=== PATIENT | female | born 2000 | race Caucasian/White ===

== ENCOUNTER 2020-01-03 17:28 | Emergency (ER) | payer OTHER ==
[2020-01-03] MEDS ORDERED: ONDANSETRON *ODT* 4 MG TABLET SL ONE (17:33)
--- NOTE | 2020-01-03 17:33 | PDOC ---
Rapid Medical Evaluation Time Seen by Provider: 01/03/20 17:30 Medical Evaluation: Allergies Allergy/AdvReac Type Severity Reaction Status Date / Time No Known Allergies Allergy Verified 01/03/20 17:30 01/03/20 17:30 Pt presents for evaluation of dizziness and vomiting. States she took two generic pamprin for cramping earlier today and then her symptoms started. Pt currently on her period Exam: NAD, gait not observed. RRR. Orders: zofran Pt to proceed to the ER for further evaluation Discharge Disposition - Diagnosis Nausea - Referrals - Patient Instructions - Post Discharge Activity
[2020-01-03 17:34] VITALS: BP 132/92; PULSE 81; TEMP 98.5; BMI 31.2
[2020-01-03] MEDS ORDERED: ONDANSETRON *ODT* 4 MG TABLET ONE (18:10)
--- NOTE | 2020-01-03 18:10 | PDOC ---
History of Present Illness - General Chief Complaint: Lightheaded Stated Complaint: DIZZY Time Seen by Provider: 01/03/20 17:30 History Source: Patient Exam Limitations: Clinical Condition - History of Present Illness Initial Comments: 01/03/20 18:04 Patient with no significant past medical history present with sudden onset of lightheadedness and dizziness with palpitations which patient reports started after taking Pamprin [id number] off brand medication for menstrual cramps. Patient reported she took 1 pill yesterday which did not have any effect on her menstrual cramping so she doubled up on the dose this morning and started feeling a little palpitations and again double up this afternoon and started feeling full-blown anxiety attack and palpitations. Report anxiety attack and palpitations started 4 hours ago which has started to improve now and is startin g to feel better. Denies history of anxiety. Patient reported vomiting 3 times since incident but now does not feel anymore nausea. Denies fever, chills, shortness of breath, headache, abdominal pain. Denies any other symptoms Is this a multiple visit Asthma Patient?: No Timing/Duration: 4-6 hours Past History - Medical History Allergies/Adverse Reactions: Allergies Allergy/AdvReac Type Severity Reaction Status Date / Time No Known Allergies Allergy Verified 01/03/20 17:30 COPD: No - Reproductive History Is Patient Now?: No - Immunization History Immunization Up to Date: No - Psycho-Social/Smoking History Smoking History: Never smoked - Substance Abuse Hx (Audit-C & DAST Scrn) How often the patient has a drink containing alcohol: Never Score: In Men: 4 or > Positive; In Women: 3 or > Positive: 0 Screen Result (Pos requires Nsg. Audit-10AR): Negative In the last yr the pt used illegal drug/Rx for NonMed reason: No Score: Yes response is considered Positive: 0 Screen Result (Positive result requires Nsg. DAST-10): Negative Review of Systems - Review of Systems Able to Perform ROS?: Yes Is the patient limited Hungarian proficient: No Constitutional: No: Chills, Fever, Malaise HEENTM: No: Symptoms Reported, See HPI, Eye Pain, Blurred Vision, Tearing, Recent change in vision, Double Vision, Cataracts, Ear Pain, Ocular Prothesis, Ear Discharge, Nose Pain, Nose Congestion, Tinnitus, Nose Bleeding, Hearing Loss, Throat Pain, Throat Swelling, Mouth Pain, Dental Problems, Difficulty Swallowing, Mouth Swelling, Other Respiratory: No: Symptoms reported, See HPI, Cough, Orthopnea, Shortness of Breath, SOB with Exertion, SOB at Rest, Stridor, Wheezing, Productive cough, H emoptysis, Other Cardiac (ROS): Yes: Symptoms Reported, See HPI, Irregular Heart Rate, Lightheadedness, Palpitations. No: Chest Pain, Edema, Syncope, Chest Tightness, Other ABD/GI: Yes: Symptoms Reported, See HPI, Nausea, Vomiting. No: Constipated, Diarrhea, Abdominal cramping Neurological: No: Symptoms reported, Ataxia All Other Systems: Reviewed and Negative *Physical Exam - Vital Signs Last Vital Signs Temp Pulse Resp BP Pulse Ox 98.5 F 81 20 132/92 100 01/03/20 17:30 01/03/20 17:30 01/03/20 17:30 01/03/20 17:30 01/03/20 17:30 - Physical Exam 01/03/20 18:10 GENERAL: Well developed, well nourished. Awake and alert. No acute distress. HEENT: Normocephalic, atraumatic. PERRLA, EOMI. No conjunctival pallor. Sclera are non- icteric. Moist mucous membranes. Oropharynx is clear. NECK: Supple. Full ROM. CARDIOVASCULAR: Regular rate and rhythm. No murmurs, rubs, or gallops. Distal pulses are 2+ and symmetric. PULMONARY: No evidence of respiratory distress. Lungs clear to auscultation bilaterally. No wheezing, rales or rhonchi. ABDOMINAL: Soft. Non-tender. Non-distended. No rebound or guarding. No organomegaly. Normoactive bowel sounds. MUSCULOSKELETAL Normal range of motion at all joints. SKIN: Warm and dry. Normal capillary refill. No rashes. No jaundice. NEUROLOGICAL: Alert, awake, appropriate. Cranial nerves 2-12 intact. No deficits to light touch in face, upper extremities and lower extremities. No motor deficits in the in face, upper extremities and lower extremities. Normal speech. Gait is normal without ataxia. PSYCHIATRIC: Cooperative. Good eye contact. Appropriate mood and affect. General Appearance: Yes: Nourished, Appropriately Dressed. No: Apparent Distress ED Treatment Course - LABORATORY CBC & Chemistry Diagram: 01/03/20 18:15 08/24/20 18:15 Medical Decision Making - Medical Decision Making 01/03/20 18:08 Patient with no significant past medical history present with sudden onset of lightheadedness and dizziness with palpitations which patient reports started after taking Pamprin [id number] off brand medication for menstrual cramps. Patient reported she took 1 pill yesterday which did not have any effect on her menstrual cramping so she doubled up on the dose this morning and started feeling a little palpitations and again double up this afternoon and started fee ling full-blown anxiety attack and palpitations. Report anxiety attack and palpitations started 4 hours ago which has started to improve now and is starting to feel better. Denies history of anxiety. Patient reported vomiting 3 times since incident but now does not feel anymore nausea. Denies fever, chills, shortness of breath, headache, abdominal pain. Denies any other symptoms Clinical exam unremarkable with patient in no acute distress. Normal cardio and lung exam. Patient symptoms likely side effect of Pamprin medication versus less likely cardiogenic symptoms. Will do basic CBC and chemistry lab and EKG. Hira ordered from triage for nausea and dizziness. Reassess after lab results 01/03/20 19:12 CBC and chemistry lab normal. Patient reported improvement of symptoms. Mingo andre symptoms likely side effect from medication advised to refrain from taking medication, rest, increase fluid intake with PCP follow-up. Strict follow-up instructions discussed with patient including worsening symptoms and to go to the nearest emergency room. Patient voiced understanding of follow-up instructions and patient walk out of department without complication and without support. Discharge - Discharge Information Problems reviewed: Yes Clinical Impression/Diagnosis: Nausea, Palpitations Condition: Improved Disposition: HOME - Admission No - Follow up/Referral - Patient Discharge Instructions Additional Instructions: Your blood work is normal. Your symptoms likely side effect from the medication. Refrain from taking Pamprin medication. Rest. Increase fluid intake. Follow-up with your primary care - Post Discharge Activity
[2020-01-03 18:55] LABS: BASO % 0.6 % (0-2.0); EOS % 0.9 % (0-4.5); HEMATOCRIT 38.8 % (32.4-45.2); HEMOGLOBIN 13.3 GM/dL (10.7-15.3); LYMPH % 22.1 % (8-40); MCH 30.4 pg (25.7-33.7); MCHC 34.4 g/dl (32.0-36.0); MEAN CELL VOLUME 88.4 fl (80-96); MEAN PLT VOLUME 7.7 fl (7.5-11.1); MONO % 4.3 % (3.8-10.2); NEUT % 72.1 % (42.8-82.8); PLATELET COUNT 357 K/MM3 (134-434); RBC 4.39 M/mm3 (3.60-5.2); RDW 12.9 % (11.6-15.6); WHITE BLOOD COUNT 9.5 K/mm3 (4.0-10.0)
[2020-01-03 19:25] LABS: ALBUMIN 4.1 g/dl (3.4-5.0); BILIRUBIN,TOTAL 0.2 mg/dL (0.2-1); CALCIUM 8.9 mg/dL (8.5-10.1); CREATININE 0.9 mg/dL (0.55-1.3); POTASSIUM 3.4 mmol/L (3.5-5.1); TOT PROT 7.9 g/dl (6.4-8.2)
== END 2020-01-03 19:15 | disposition home or self-care (01) ==
LOC: JER 17:28
DX: R11.0 Nausea (principal); R00.2 Palpitations
CPT/HCPCS: 36415; 80053; 84703; 85025; 99283-25; Q0162

== ENCOUNTER 2020-02-23 16:26 | Emergency (ER) | payer OTHER ==
--- NOTE | 2020-02-23 16:38 | PDOC ---
Rapid Medical Evaluation Time Seen by Provider: 02/23/20 16:30 Medical Evaluation: Allergies Allergy/AdvReac Type Severity Reaction Status Date / Time No Known Allergies Allergy Verified 01/03/20 17:30 02/23/20 16:32 I performed a brief in-person evaluation of this patient. Pt is a 19 y/o female with complaint of sore throat and tonsilar swelling since 3 days ago. No fevers, sob, cough. Pertinent physical exam findings: b/l tonsillar swelling, no exudates I have ordered the following: strep swab Patient to proceed to ED for further evaluation. Discharge Disposition - Diagnosis Sore throat - Referrals - Patient Instructions - Post Discharge Activity
[2020-02-23 16:41] VITALS: BP 110/86; PULSE 75; TEMP 98.5; BMI 30.2
--- OUTSIDE RECORDS SUMMARY | 2020-02-23 16:44 | XMS ---
:2000 Author Organization [facility] Support Name Relationship Address Phone UE, UNEMPLOYED Unavailable Unavailable Unavailable UE Unavailable Unavailable Unavailable LUZ OLIVAS PARTNER [address] [phone] [place] [address] EMPLOYER Unavailable Unavailable Unavailable DEBBIE OROURKE unrelated friend Unavailable Re-disclosure Warning The records that you are about to access may contain information from federally- assisted alcohol or drug abuse programs. If such information is present, then the following federally mandated warning applies: This information has been disclosed to you from records protected by federal confidentiality rules (42 CFR part 2). The federal rules prohibit you from making any further disclosure of this information unless further disclosure is expressly permitted by the written consent of the person to whom it pertains or as otherwise permitted by 42 CFR part 2. A general authorization for the release of medical or other information is NOT sufficient for this purpose. The Federal rules restrict any use of the information to criminally investigate or prosecute any alcohol or drug abuse patient.The records that you are about to access may contain highly sensitive health information, the redisclosure of which is protected by Article 27-F of the [facility] Public Health law. If you continue you may haveaccess to information: Regarding HIV / AIDS; Provided by facilities licensed or operated by the [facility] Office of Mental Health; or Provided by the [facility] Office for People With Developmental Disabilities. If such information is present, then the following [facility] mandated warning applies: This information has been disclosed to you from confidential records which are protected by state law. State law prohibits you from making any further disclosure of this information without the specific written consent of the person to whom it pertains, or as otherwise permitted by law. Any unauthorized further disclosure in violation of state law may result in a fine or long term sentence or both. A general authorization for the release of medical or other information is NOT sufficient authorization for further disclosure. Encounters Encounter Providers Location Date Indications Data Source(s ) Outpatient 02/23/2019 05:19:00 [facility] Outpatient 02/23/2019 12:00:00 [facility] 02/16/2019 05:18:00 [facility] Patient admitted. Insurance Providers Payer name Policy type Policy ID Covered Covered democrat's Policy P shyam / Coverage democrat ID relationship to [facility] ormation type [facility] [id number] [facility] [id number] [facility]
[2020-02-23] MEDS ORDERED: DEXAMETHASONE LIQUID 0.5 MG/5 ML PO ONE (17:01)
[2020-02-23] MEDS ORDERED: DEXAMETHASONE SOD PHOSPHATE 10 MG/1 ML VIAL ONE (17:09)
--- NOTE | 2020-02-23 18:24 | PDOC ---
History of Present Illness - General Chief Complaint: Sore Throat Stated Complaint: SORE THROAT- TONSILS Time Seen by Provider: 02/23/20 16:30 - History of Present Illness Initial Comments: 02/23/20 18:21 19-year-old female no comorbidities presents for evaluation of sore throat nose no fever x3 days Past History - Medical History Allergies/Adverse Reactions: Allergies Allergy/AdvReac Type Severity Reaction Status Date / Time No Known Allergies Allergy Verified 02/23/20 16:40 COPD: No - Reproductive History Is Patient Now?: No - Immunization History Immunization Up to Date: No - Psycho-Social/Smoking History Smoking History: Never smoked Have you smoked in the past 12 months: No Information on smoking cessation initiated: No - Substance Abuse Hx (Audit-C & DAST Scrn) How often the patient has a drink containing alcohol: Never Score: In Men: 4 or > Positive; In Women: 3 or > Positive: 0 Screen Result (Pos requires Nsg. Audit-10AR): Negative In the last yr the pt used illegal drug/Rx for NonMed reason: No Score: Yes response is considered Positive: 0 Screen Result (Positive result requires Nsg. DAST-10): Negative Review of Systems - Review of Systems Constitutional: No: Fever HEENTM: Yes: Throat Pain *Physical Exam - Vital Signs Last Vital Signs Temp Pulse Resp BP Pulse Ox 98.5 F 75 17 110/86 100 02/23/20 16:38 02/23/20 16:38 02/23/20 16:38 02/23/20 16:38 02/23/20 16:38 - Physical Exam 02/23/20 18:21 GENERAL: The patient is awake, alert, and fully oriented, in no acute distress. HEAD: Normal with no signs of trauma. EYES: sclera anicteric, conjunctiva clear. ENT: Ears normal tympanic membranes normal oropharynx clear uvula midline NECK: Normal range of motion EXTREMITIES: Normal range of motion, no edema. No clubbing or cyanosis. No cords, erythema, or tenderness. NEUROLOGICAL: Cranial nerves II through XII grossly intact. PSYCH: Normal mood, normal affect. SKIN: Warm, Dry, normal turgor, no rashes or lesions noted. ED Treatment Course - Medications Given in the ED: ED Medications Discontinued Medications Generic Name Dose Route Start Last Admin Trade Name Freq PRN Reason Stop Dose Admin Dexamethasone 10 mg 02/23/20 17:01 02/23/20 17:10 Decadron Liquid - PO 02/23/20 17:02 10 mg ONCE ONE Administration Medical Decision Making - Medical Decision Making 02/23/20 18:22 Benign examination negative strep most likely a viral pharyngitis follow-up with primary care physician Decadron given in the emergency room for pain Discharge - Discharge Information Problems reviewed: Yes Clinical Impression/Diagnosis: Sore throat, Viral pharyngitis Condition: Stable Disposition: HOME - Admission No - Follow up/Referral Referrals: Mindy Baca MD [Staff Physician] - - Patient Discharge Instructions Additional Instructions: Your strep test today was negative, no antibiotics are needed. Warm salt water gargles 5-6 times a day will help with your pain. Tylenol and Motrin for any discomfort. A culture was sent should you require antibiotics we will call you. Please follow-up with your primary care physician in 2 to 3 days without fail and return to the emergency room should symptoms worsen. - Post Discharge Activity
== END 2020-02-23 18:25 | disposition home or self-care (01) ==
LOC: JERFT 16:26
DX: J02.9 Acute pharyngitis, unspecified (principal)
CPT/HCPCS: 87070; 87880; 99284-25

== ENCOUNTER 2020-05-30 14:31 | Emergency (ER) | payer OTHER ==
[2020-05-30 14:41] VITALS: BMI 31.2
[2020-05-30] MEDS ORDERED: ACETAMINOPHEN 325 MG TABLET (FP) PO ONE (16:43)
[2020-05-30] MEDS ORDERED: ACETAMINOPHEN 325 MG TABLET (FP) ONE (16:46)
[2020-05-30 17:00] LABS: HCG,QUALITATIVE URINE Negative
[2020-05-30 17:01] LABS: EPI CELLS 6 /uL (0-25.1); HYALINE CASTS 1 /uL (0-3.1); PH,URINE 6.5 (5.0-8.0); URINE APPEARANCE CLEAR; URINE BACTERIA 218 /uL (0-1359); URINE BILIRUBIN NEGATIVE (NEGATIVE); URINE COLOR YELLOW; URINE GLUCOSE (UA) NEGATIVE (NEGATIVE); URINE KETONE NEGATIVE (NEGATIVE); URINE LEUK ESTERASE NEGATIVE (NEGATIVE); URINE NITRITE NEGATIVE (NEGATIVE); URINE PROTEIN NEGATIVE (NEGATIVE); URINE RBC 23 /uL (0-23.9); URINE WBC 11 /uL (0-25.8)
[2020-05-30 17:31] VITALS: BP 121/77; PULSE 60; TEMP 98
== END 2020-05-30 17:32 | disposition home or self-care (01) ==
LOC: JER 14:31
DX: R10.31 Right lower quadrant pain (principal)
CPT/HCPCS: 36415; 81003; 84703; 87086; 87491; 87591; 99283-25

== ENCOUNTER 2020-11-08 19:43 | Emergency (ER) | payer OTHER ==
[2020-11-08 19:49] VITALS: BP 121/78; PULSE 65; BMI 34.2
[2020-11-08 20:01] VITALS: TEMP 97.9
[2020-11-08 22:30] LABS: PH,URINE 5.5 (5.0-8.0); URINE APPEARANCE CLEAR; URINE BILIRUBIN NEGATIVE (NEGATIVE); URINE COLOR YELLOW; URINE GLUCOSE (UA) NEGATIVE (NEGATIVE); URINE KETONE NEGATIVE (NEGATIVE); URINE LEUK ESTERASE NEGATIVE (NEGATIVE); URINE NITRITE NEGATIVE (NEGATIVE); URINE PROTEIN NEGATIVE (NEGATIVE)
[2020-11-08 23:23] LABS: BASO % 1.1 % (0-2.0); EOS % 0.9 % (0-4.5); HEMATOCRIT 34.8 % (32.4-45.2); MCHC 34.6 g/dl (32.0-36.0); MEAN CELL VOLUME 86.9 fl (80-96); MEAN PLT VOLUME 7.1 fl (7.5-11.1); MONO % 6.3 % (3.8-10.2); NEUT % 64.7 % (42.8-82.8); PLATELET COUNT 339 10^3/uL (134-434); RDW 13.1 % (11.6-15.6); WHITE BLOOD COUNT 16.2 K/mm3 (4.0-10.0)
== END 2020-11-09 00:10 | disposition home or self-care (01) ==
LOC: JER 19:43
DX: O26.891 Other specified pregnancy related conditions, first trimester (principal); R10.2 Pelvic and perineal pain
CPT/HCPCS: 36415; 76801-TC; 81003; 84702; 85025; 99284-25

== ENCOUNTER 2021-06-23 07:30 | Inpatient (IN) | payer OTHER ==
[2021-06-23] MEDS ORDERED: PROMETHAZINE HCL 25 MG/1 ML VIAL ONE (08:21)
[2021-06-23] MEDS ORDERED: BUTORPHANOL TARTRATE 2 MG/ML VIAL ONE (08:21)
[2021-06-23 09:11] VITALS: BMI 34.7
[2021-06-23] MEDS ORDERED: OXYTOCIN 20 UNITS in 0.9% NS 20 UNIT/1,000 ML INFUS.BAG IV ONE ×2 (11:07→14:27)
[2021-06-23] MEDS ORDERED: LIDOCAINE HCL 1% PRESERVATIVE FREE - 30ML VIAL ONE (11:07)
[2021-06-23] MEDS ORDERED: NALOXONE HCL 0.4 MG/ML VIAL IVPUSH PRN (11:23)
[2021-06-23] MEDS ORDERED: FENTANYL/BUPIVACAINE/NS/PF - PCEA - 50 ML DISP.SYRIN EP SCH (11:30)
[2021-06-23] MEDS ORDERED: BUTORPHANOL TARTRATE 1 MG/ML VIAL IVPUSH ONE (11:42)
[2021-06-23] MEDS ORDERED: PROMETHAZINE HCL 25 MG/1 ML VIAL IVPUSH ONE (11:42)
[2021-06-23] MEDS ORDERED: ELECTROLYTE-148 SOLN 1,000 ML IV SCH (11:45)
[2021-06-23] MEDS ORDERED: BISACODYL 10 MG SUPP.RECT RC PRN (12:41)
[2021-06-23] MEDS ORDERED: WITCH HAZEL 50% (TUCKS) 40 PAD/JAR PAD TP PRN (12:41)
[2021-06-23] MEDS ORDERED: METHYLERGONOVINE MALEATE 0.2 MG/1 ML AMP IM PRN (12:41)
[2021-06-23] MEDS ORDERED: BENZOCAINE 28 GM HEMORRHOIDAL OINTMENT TP PRN (12:41)
[2021-06-23] MEDS ORDERED: oxyCODONE HCL 5 MG TABLET PO PRN (12:41)
[2021-06-23] MEDS ORDERED: BENZOCAINE 20% 57 GM BOTTLE TP PRN (12:41)
[2021-06-23] MEDS ORDERED: OXYTOCIN 20 UNITS in 0.9% NS 20 UNIT/1,000 ML INFUS.BAG IV SCH (12:45)
[2021-06-23 14:14] LABS: CORD BASE EXCESS -12.3 mmol/L (0-2); CORD HCO3 16.2 mmHg (20-29); CORD PCO2 45.4 mmHg (30-78); CORD pH 7.169 (7.14-7.44)
[2021-06-23 14:18] LABS: CORD HCO3 21.3 mmHg (20-29); CORD PCO2 78.6 mmHg (30-78); CORD pH 7.051 (7.14-7.44)
[2021-06-23] MEDS ORDERED: ACETAMINOPHEN 325 MG TABLET (FP) ONE (15:05)
[2021-06-23] MEDS: ACETAMINOPHEN 325 MG TABLET (FP) PO PRN ×2 (15:41→21:12)
[2021-06-24 08:19] LABS: BASO % 0.3 % (0-2.0); EOS % 0.5 % (0-4.5); HEMATOCRIT 31.6 % (32.4-45.2); HEMOGLOBIN 10.6 GM/dL (10.7-15.3); LYMPH % 20.4 % (8-40); MCH 29.4 pg (25.7-33.7); MCHC 33.6 g/dl (32.0-36.0); MEAN CELL VOLUME 87.3 fl (80-96); MEAN PLT VOLUME 7.6 fl (7.5-11.1); MONO % 5.5 % (3.8-10.2); NEUT % 73.3 % (42.8-82.8); PLATELET COUNT 281 10^3/uL (134-434); RBC 3.62 M/mm3 (3.60-5.2); RDW 15.1 % (11.6-15.6); WHITE BLOOD COUNT 14.2 K/mm3 (4.0-10.0)
[2021-06-24] MEDS: IBUPROFEN 600 MG TABLET (FP) PO PRN ×2 (09:35→20:21)
[2021-06-24] MEDS ORDERED: MEASLES,MUMPS&RUBELLA VACC/PF 0.5 ML VIAL SQ ONE (14:00)
[2021-06-24] MEDS ORDERED: SENNOSIDES/DOCUSATE COMBO (SENNA PLUS) TABLET (UD) PO PRN (22:00)
[2021-06-25] MEDS: IBUPROFEN 600 MG TABLET (FP) PO PRN (08:58)
[2021-06-25] MEDS ORDERED: MEASLES,MUMPS&RUBELLA VACC/PF 0.5 ML VIAL SQ ONE (10:00)
[2021-06-25 11:10] VITALS: BP 116/75; PULSE 71; TEMP 98.2
== END 2021-06-25 12:10 | disposition home or self-care (01) | DRG 560 ==
LOC: JLDR 07:30 → J3W 15:55
PROVIDERS: ADMIT Family Medicine; ATTEND Family Medicine
PROC: 10E0XZZ Delivery of Products of Conception, External Approach (ICD-10-PCS; principal; 2021-06-23)
PROC: 0KQM0ZZ Repair Perineum Muscle, Open Approach (ICD-10-PCS; 2021-06-23)
DX: O42.02 Full-term premature rupture of membranes, onset of labor within 24 hours of rupture (principal); Z37.0 Single live birth; Z3A.41 41 weeks gestation of pregnancy; O70.1 Second degree perineal laceration during delivery
CPT/HCPCS: 36415; 36600; 59025; 59409; 80048; 82803; 85025; 85610; 85730; 86769; 86780; 86850; 86900; 86901; C9803; U0003; U0005

== ENCOUNTER 2021-10-16 11:06 | Emergency (ER) | payer OTHER ==
[2021-10-16 11:16] VITALS: BP 122/77; PULSE 55; TEMP 98.3; BMI 29.0
[2021-10-16 13:16] LABS: THROAT:GRP A STREP NOT DETECTED (NOTDETECTED)
== END 2021-10-16 11:51 | disposition home or self-care (01) ==
LOC: JERFT 11:06
DX: J02.8 Acute pharyngitis due to other specified organisms (principal)
CPT/HCPCS: 0241U-QW; 87651; 99283-25

== ENCOUNTER 2022-01-12 02:09 | Emergency (ER) | payer OTHER ==
[2022-01-12 02:23] VITALS: RESP 18; BMI 29.8
[2022-01-12] MEDS ORDERED: ONDANSETRON 4 MG/2 ML VIAL IVPUSH ONE (02:46)
[2022-01-12] MEDS ORDERED: ACETAMINOPHEN 1000 MG/100 ML BAG IVPB ONE (02:46)
[2022-01-12] MEDS ORDERED: SODIUM CHLORIDE 0.9% 500 ML INFUS.BAG IV ONE (02:48)
[2022-01-12] MEDS ORDERED: ONDANSETRON 4 MG/2 ML VIAL ONE (03:09)
[2022-01-12] MEDS ORDERED: ACETAMINOPHEN INJECTION 100 ML IVPB ONE (03:09)
[2022-01-12 03:41] LABS: BASO % 0.5 % (0-2.0); EOS % 2.4 % (0-4.5); HEMATOCRIT 38.6 % (32.4-45.2); HEMOGLOBIN 13.6 GM/dL (10.7-15.3); MCH 30.3 pg (25.7-33.7); MCHC 35.1 g/dl (32.0-36.0); MEAN CELL VOLUME 86.4 fl (80-96); MONO % 5.5 % (3.8-10.2); NEUT % 68.6 % (42.8-82.8); PLATELET COUNT 392 10^3/uL (134-434); RBC 4.47 M/mm3 (3.60-5.2)
[2022-01-12 03:47] LABS: HCG,QUALITATIVE URINE Negative
[2022-01-12 03:49] LABS: EPI CELLS 15 /uL (0-25.1); HYALINE CASTS 2 /uL (0-3.1); PH,URINE 5.5 (5.0-8.0); URINE APPEARANCE CLEAR; URINE BACTERIA 3 /uL (0-1359); URINE BILIRUBIN NEGATIVE (NEGATIVE); URINE COLOR YELLOW; URINE GLUCOSE (UA) NEGATIVE (NEGATIVE); URINE KETONE TRACE (NEGATIVE); URINE LEUK ESTERASE NEGATIVE (NEGATIVE); URINE NITRITE NEGATIVE (NEGATIVE); URINE PROTEIN NEGATIVE (NEGATIVE); URINE RBC 203 /uL (0-23.9); URINE UROBILINOGEN 0.2 mg/dL (0.2-1.0); URINE WBC 8 /uL (0-25.8)
[2022-01-12 03:59] LABS: ALBUMIN 3.8 g/dl (3.4-5.0); CALCIUM 9.4 mg/dL (8.5-10.1)
[2022-01-12 04:00] LABS: BLOOD UREA NITROGEN 24.9 mg/dL (7-18)
[2022-01-12 04:02] LABS: CREATININE 0.6 mg/dL (0.55-1.3)
[2022-01-12 04:04] LABS: BILIRUBIN,TOTAL 0.2 mg/dL (0.2-1); TOT PROT 7.7 g/dl (6.4-8.2)
[2022-01-12] MEDS ORDERED: MAG HYDROX/AL HYDROX/SIMETH -MYLANTA- ORAL SUSPENSION PO ONE (05:50)
[2022-01-12] MEDS ORDERED: MAG HYDROX/AL HYDROX/SIMETH 30 ML UNIT-DOSE CUP ONE (05:50)
[2022-01-12 08:18] VITALS: BP 113/76; PULSE 62; TEMP 97.5
== END 2022-01-12 08:00 | disposition home or self-care (01) ==
LOC: JER 02:09
PROC: 3E0333Z Introduction of Anti-inflammatory into Peripheral Vein, Percutaneous Approach (ICD-10-PCS; principal; 2022-01-12)
PROC: 3E033GC Introduction of Other Therapeutic Substance into Peripheral Vein, Percutaneous Approach (ICD-10-PCS; 2022-01-12)
DX: K80.20 Calculus of gallbladder without cholecystitis without obstruction (principal)
CPT/HCPCS: 36415; 76705-TC; 80053; 81003; 83690; 84703; 85025; 87077; 87086; 99285-25

== ENCOUNTER 2022-01-23 02:56 | Emergency (ER) | payer OTHER ==
[2022-01-23 03:03] VITALS: RESP 18; TEMP 97.9; BMI 34.7
[2022-01-23] MEDS ORDERED: LACTATED RINGERS SOLUTION 1000 ML INFUS.BAG IV ONE (03:26)
[2022-01-23] MEDS ORDERED: ACETAMINOPHEN 1000 MG/100 ML BAG IVPB ONE (03:26)
[2022-01-23] MEDS ORDERED: ONDANSETRON 4 MG/2 ML VIAL IVPUSH ONE (03:26)
[2022-01-23] MEDS ORDERED: ACETAMINOPHEN INJECTION 100 ML IVPB ONE (03:32)
[2022-01-23] MEDS ORDERED: ONDANSETRON 4 MG/2 ML VIAL ONE (03:32)
[2022-01-23 05:06] LABS: URINE APPEARANCE CLEAR; URINE BILIRUBIN NEGATIVE (NEGATIVE); URINE COLOR YELLOW; URINE GLUCOSE (UA) NEGATIVE (NEGATIVE); URINE KETONE NEGATIVE (NEGATIVE); URINE LEUK ESTERASE NEGATIVE (NEGATIVE); URINE NITRITE NEGATIVE (NEGATIVE); URINE PROTEIN NEGATIVE (NEGATIVE); URINE UROBILINOGEN 0.2 mg/dL (0.2-1.0)
[2022-01-23 05:17] LABS: CHLORIDE 98 mmol/L (98-107); SODIUM 123 mmol/L (136-145)
[2022-01-23 05:19] LABS: CALCIUM 8.6 mg/dL (8.5-10.1)
[2022-01-23 05:20] LABS: ALBUMIN 3.4 g/dl (3.4-5.0); CO2 28 mmol/L (21-32); GLUCOSE,RANDOM 96 mg/dL (74-106)
[2022-01-23 05:23] LABS: CREATININE 0.7 mg/dL (0.55-1.3)
[2022-01-23 05:34] LABS: HCG,QUALITATIVE URINE Negative
[2022-01-23 05:40] LABS: BASO % 0.3 % (0-2.0); EOS % 1.2 % (0-4.5); HEMATOCRIT 39.3 % (32.4-45.2); LYMPH % 25.8 % (8-40); MCH 29.2 pg (25.7-33.7); MCHC 33.1 g/dl (32.0-36.0); MEAN CELL VOLUME 88.2 fl (80-96); MEAN PLT VOLUME 7.7 fl (7.5-11.1); MONO % 4.8 % (3.8-10.2); NEUT % 67.9 % (42.8-82.8); PLATELET COUNT 441 10^3/uL (134-434); RBC 4.46 M/mm3 (3.60-5.2); RDW 13.6 % (11.6-15.6); WHITE BLOOD COUNT 12.6 K/mm3 (4.0-10.0)
[2022-01-23 05:43] LABS: ANION GAP -3 MMOL/L (8-16); TOT PROT 10.1 g/dl (6.4-8.2)
[2022-01-23 06:40] LABS: BASO % 0.5 % (0-2.0); EOS % 0.8 % (0-4.5); HEMATOCRIT 35.1 % (32.4-45.2); HEMOGLOBIN 12.3 GM/dL (10.7-15.3); MCH 30.4 pg (25.7-33.7); MCHC 35.2 g/dl (32.0-36.0); MEAN CELL VOLUME 86.5 fl (80-96); MONO % 5.1 % (3.8-10.2); NEUT % 64.6 % (42.8-82.8); PLATELET COUNT 395 10^3/uL (134-434); RBC 4.06 M/mm3 (3.60-5.2); RDW 13.1 % (11.6-15.6); WHITE BLOOD COUNT 10.7 K/mm3 (4.0-10.0)
[2022-01-23 06:47] LABS: INR 1.1 (0.83-1.09); PROTHROMBIN TIME (PATIENT) 12.7 SEC (9.7-13.0)
[2022-01-23 06:50] LABS: ACTIVATED PTT 33.9 SECONDS (25.2-36.5)
[2022-01-23 07:01] VITALS: BP 108/68; PULSE 65
[2022-01-23 07:01] LABS: CALCIUM 8.5 mg/dL (8.5-10.1)
[2022-01-23 07:02] LABS: BLOOD UREA NITROGEN 14.6 mg/dL (7-18)
[2022-01-23 07:05] LABS: CREATININE 0.6 mg/dL (0.55-1.3)
[2022-01-23 09:29] LABS: CALCIUM 8.6 mg/dL (8.5-10.1)
[2022-01-23 09:30] LABS: ALBUMIN 3.6 g/dl (3.4-5.0)
[2022-01-23 09:31] LABS: BLOOD UREA NITROGEN 14.6 mg/dL (7-18)
[2022-01-23 09:33] LABS: BILIRUBIN,DIRECT 0.1 mg/dL (0.0-0.2); CREATININE 0.5 mg/dL (0.55-1.3)
[2022-01-23 09:36] LABS: BILIRUBIN,TOTAL 0.4 mg/dL (0.2-1)
[2022-01-23] MEDS ORDERED: KETOROLAC TROMETHAMINE 15 MG/ML VIAL IVPUSH ONE (10:04)
[2022-01-23] MEDS ORDERED: KETOROLAC TROMETHAMINE 15 MG/ML VIAL ONE (10:14)
== END 2022-01-23 10:40 | disposition home or self-care (01) ==
LOC: JER 02:56
PROC: 3E0333Z Introduction of Anti-inflammatory into Peripheral Vein, Percutaneous Approach (ICD-10-PCS; principal; 2022-01-23)
PROC: 3E0333Z Introduction of Anti-inflammatory into Peripheral Vein, Percutaneous Approach (ICD-10-PCS; 2022-01-23)
PROC: 3E033GC Introduction of Other Therapeutic Substance into Peripheral Vein, Percutaneous Approach (ICD-10-PCS; 2022-01-23)
DX: R10.11 Right upper quadrant pain (principal)
CPT/HCPCS: 36415; 74177-TC; 76705-TC; 76830-TC; 80048; 80053; 80061; 80076; 81003; 83690; 84703; 85025; 85610; 85730; 87086; 99285-25; C9803-CS; Q9967; U0003; U0005

== ENCOUNTER 2022-01-25 00:46 | Day surgery (SDC) | payer OTHER ==
[~2022-01-25 00:46] MED LIST: BUPIVACAINE HCL/PF 0.5% (5MG/ML) 10 ML VIAL IJ ONE
[2022-01-25 01:17] VITALS: BMI 33.6
[2022-01-25] MEDS ORDERED: SODIUM CHLORIDE 0.9% 500 ML INFUS.BAG IV ONE (01:46)
[2022-01-25] MEDS ORDERED: ACETAMINOPHEN 1000 MG/100 ML BAG IVPB ONE (01:46)
[2022-01-25] MEDS ORDERED: METOCLOPRAMIDE HCL INJECTION 10 MG/2 ML VIAL IVPB ONE (01:46)
[2022-01-25] MEDS ORDERED: ACETAMINOPHEN INJECTION 100 ML IVPB ONE (02:16)
[2022-01-25] MEDS ORDERED: METOCLOPRAMIDE HCL INJECTION 10 MG/2 ML VIAL ONE (02:17)
[2022-01-25 03:21] LABS: ALBUMIN 4.3 g/dl (3.4-5.0); BLOOD UREA NITROGEN 17.2 mg/dL (7-18); CALCIUM 9.3 mg/dL (8.5-10.1)
[2022-01-25 03:24] LABS: CREATININE 0.9 mg/dL (0.55-1.3)
[2022-01-25] MEDS ORDERED: morphine CARPU-JECT 4 MG/1 ML DISP.SYRIN IVPUSH ONE (03:24)
[2022-01-25 03:25] LABS: BASO % 0.6 % (0-2.0); EOS % 0.3 % (0-4.5); HEMATOCRIT 38.5 % (32.4-45.2); HEMOGLOBIN 13.6 GM/dL (10.7-15.3); MCH 30.4 pg (25.7-33.7); MCHC 35.2 g/dl (32.0-36.0); MEAN CELL VOLUME 86.2 fl (80-96); MEAN PLT VOLUME 8.9 fl (7.5-11.1); MONO % 2.6 % (3.8-10.2); NEUT % 81.5 % (42.8-82.8); PLATELET COUNT 379 10^3/uL (134-434); RBC 4.47 M/mm3 (3.60-5.2); RDW 13.1 % (11.6-15.6); WHITE BLOOD COUNT 18.6 K/mm3 (4.0-10.0)
[2022-01-25 03:26] LABS: BILIRUBIN,TOTAL 0.5 mg/dL (0.2-1); TOT PROT 8.8 g/dl (6.4-8.2)
[2022-01-25] MEDS ORDERED: PIPERACILLIN/TAZOB 3.375 GM 3.375 GM in DEXTROSE 5%-WATER - 50 ML IVPB ONE (03:54)
[2022-01-25] MEDS ORDERED: PIPERACILLIN/TAZOB 3.375 GM 3.375 GM/50 ML BAG IVPB ONE (03:57)
[2022-01-25] MEDS ORDERED: morphine SULFATE 4 MG/ML VIAL ONE (03:57)
[2022-01-25] MEDS ORDERED: SODIUM CHLORIDE 1,000 ML IV STA (06:10)
[2022-01-25] MEDS ORDERED: ACETAMINOPHEN 1000 MG/100 ML BAG IVPB PRN (06:23)
[2022-01-25] MEDS ORDERED: PIPERACILLIN/TAZOB 3.375 GM 3.375 GM in DEXTROSE 5%-WATER - 50 ML IVPB SCH ×2 (06:30→09:00)
[2022-01-25] MEDS ORDERED: SODIUM CHLORIDE 1,000 ML IV SCH (07:45)
[2022-01-25] MEDS ORDERED: ENOXAPARIN NA (PORCINE) 40 MG/0.4 ML DISP.SYRIN SQ SCH (10:00)
[2022-01-25] MEDS ORDERED: CEFTRIAXONE 1 GM in DEXTROSE 5%-WATER - 50 ML IVPB SCH (10:45)
[2022-01-25] MEDS ORDERED: MIDAZOLAM HCL 2 MG/2 ML SINGLE DOSE VIAL ONE (11:56)
[2022-01-25] MEDS ORDERED: DEXAMETHASONE SOD PHOSPHATE 4 MG/1 ML VIAL ONE (12:16)
[2022-01-25] MEDS ORDERED: KETOROLAC TROMETHAMINE 30 MG/1 ML VIAL ONE (12:16)
[2022-01-25] MEDS ORDERED: LIDOCAINE HCL/PF 2% SDV 5ML VIAL ONE (12:16)
[2022-01-25] MEDS ORDERED: ONDANSETRON 4 MG/2 ML VIAL ONE (12:16)
[2022-01-25] MEDS ORDERED: BUPIVACAINE HCL/PF 0.5% (5MG/ML) 10 ML VIAL IJ ONE ×2 (12:30)
[2022-01-25] MEDS ORDERED: ROCURONIUM BROMIDE 50 MG/5 ML SYRINGE ONE (13:14)
[2022-01-25] MEDS ORDERED: NEOSTIGMINE METHYLSULFATE 0.5 MG/ML - 10 ML MDV ONE (13:27)
[2022-01-25] MEDS ORDERED: ONDANSETRON 4 MG/2 ML VIAL IVPUSH PRN ×2 (14:54→15:02)
[2022-01-25] MEDS ORDERED: LACTATED RINGERS SOLUTION 1,000 ML IV SCH (15:00)
[2022-01-25] MEDS: INSULIN SLIDING SCALE (NOVOLOG) 1 VIAL SQ SCH ×2 (15:48→15:49)
[2022-01-25] MEDS: SODIUM CHLORIDE 1,000 ML IV SCH (16:27)
[2022-01-25 16:28] LABS: MAGNESIUM 2.3 mg/dL (1.8-2.4)
[2022-01-25 16:31] LABS: PHOSPHOROUS 4.7 mg/dL (2.5-4.9)
[2022-01-25] MEDS: CEFTRIAXONE 1 GM in DEXTROSE 5%-WATER - 50 ML IVPB SCH (18:53)
[2022-01-25 19:18] LABS: URINE APPEARANCE CLEAR; URINE BILIRUBIN NEGATIVE (NEGATIVE); URINE COLOR YELLOW; URINE GLUCOSE (UA) NEGATIVE (NEGATIVE); URINE KETONE NEGATIVE (NEGATIVE); URINE LEUK ESTERASE NEGATIVE (NEGATIVE); URINE NITRITE NEGATIVE (NEGATIVE); URINE PROTEIN NEGATIVE (NEGATIVE); URINE UROBILINOGEN 0.2 mg/dL (0.2-1.0)
[2022-01-25] MEDS ORDERED: PANTOPRAZOLE SODIUM 40 MG VIAL IVPUSH ONE (23:45)
[2022-01-26] MEDS: oxyCODONE HCL 5 MG TABLET PO PRN (02:58)
[2022-01-26] MEDS: KETOROLAC TROMETHAMINE 30 MG/1 ML VIAL IVPUSH PRN ×3 (06:38→20:04)
[2022-01-26] MEDS: ENOXAPARIN NA (PORCINE) 40 MG/0.4 ML DISP.SYRIN SQ SCH (10:25)
[2022-01-26 11:37] LABS: BASO % 0.3 % (0-2.0); EOS % 0.2 % (0-4.5); HEMATOCRIT 33.5 % (32.4-45.2); HEMOGLOBIN 11.9 GM/dL (10.7-15.3); LYMPH % 20.1 % (8-40); MCH 30.8 pg (25.7-33.7); MCHC 35.5 g/dl (32.0-36.0); MEAN CELL VOLUME 86.8 fl (80-96); MEAN PLT VOLUME 7.5 fl (7.5-11.1); MONO % 5.8 % (3.8-10.2); NEUT % 73.6 % (42.8-82.8); PLATELET COUNT 357 10^3/uL (134-434); RBC 3.86 M/mm3 (3.60-5.2); RDW 13.4 % (11.6-15.6); WHITE BLOOD COUNT 8.4 K/mm3 (4.0-10.0)
[2022-01-26 11:51] LABS: CALCIUM 8.1 mg/dL (8.5-10.1)
[2022-01-26 11:53] LABS: BLOOD UREA NITROGEN 8.4 mg/dL (7-18)
[2022-01-26 11:56] LABS: CREATININE 0.6 mg/dL (0.55-1.3)
[2022-01-26 12:02] LABS: ALBUMIN 3.2 g/dl (3.4-5.0); TOT PROT 6.5 g/dl (6.4-8.2)
[2022-01-26] MEDS: SIMETHICONE 40 MG/0.6 ML BOTTLE PO PRN ×3 (14:33→20:11)
[2022-01-26 14:44] VITALS: RESP 20
[2022-01-26] MEDS: SODIUM CHLORIDE 1,000 ML IV SCH (14:48)
[2022-01-26] MEDS: CEFTRIAXONE 1 GM in DEXTROSE 5%-WATER - 50 ML IVPB SCH (17:55)
[2022-01-27] MEDS: ACETAMINOPHEN 500 MG TABLET (FP) PO PRN ×2 (02:45→18:57)
[2022-01-27] MEDS: SODIUM CHLORIDE 1,000 ML IV SCH ×2 (05:45→17:27)
[2022-01-27 08:34] LABS: HEMATOCRIT 33.5 % (32.4-45.2); HEMOGLOBIN 11.4 GM/dL (10.7-15.3); MCH 29.5 pg (25.7-33.7); MCHC 33.9 g/dl (32.0-36.0); MEAN PLT VOLUME 7.3 fl (7.5-11.1); PLATELET COUNT 316 10^3/uL (134-434); RBC 3.85 M/mm3 (3.60-5.2); RDW 13.5 % (11.6-15.6); WHITE BLOOD COUNT 7.9 K/mm3 (4.0-10.0)
[2022-01-27 08:47] LABS: BLOOD UREA NITROGEN 7.4 mg/dL (7-18); CALCIUM 8.2 mg/dL (8.5-10.1)
[2022-01-27 08:48] LABS: ALBUMIN 3.1 g/dl (3.4-5.0)
[2022-01-27 08:51] LABS: BILIRUBIN,DIRECT 0.4 mg/dL (0.0-0.2)
[2022-01-27 08:52] LABS: CREATININE 0.6 mg/dL (0.55-1.3)
[2022-01-27 08:53] LABS: BILIRUBIN,TOTAL 0.9 mg/dL (0.2-1); TOT PROT 6.4 g/dl (6.4-8.2)
[2022-01-27] MEDS: ENOXAPARIN NA (PORCINE) 40 MG/0.4 ML DISP.SYRIN SQ SCH (09:15)
[2022-01-27] MEDS: oxyCODONE HCL 5 MG TABLET PO PRN ×2 (11:49→18:50)
[2022-01-27] MEDS ORDERED: cefTRIAXone SODIUM 1 GM VIAL ONE (17:17)
[2022-01-27] MEDS: CEFTRIAXONE 1 GM in DEXTROSE 5%-WATER - 50 ML IVPB SCH (17:41)
[2022-01-28 08:10] VITALS: BP 120/67; PULSE 63; TEMP 98.5
[2022-01-28 10:06] LABS: ALBUMIN 3.3 g/dl (3.4-5.0); BLOOD UREA NITROGEN 7.3 mg/dL (7-18); CALCIUM 8.8 mg/dL (8.5-10.1)
[2022-01-28 10:08] LABS: CREATININE 0.5 mg/dL (0.55-1.3)
[2022-01-28 10:11] LABS: BILIRUBIN,TOTAL 0.6 mg/dL (0.2-1); TOT PROT 6.9 g/dl (6.4-8.2)
[2022-01-28] MEDS: ENOXAPARIN NA (PORCINE) 40 MG/0.4 ML DISP.SYRIN SQ SCH (11:07)
== END 2022-01-28 16:23 | disposition home or self-care (01) ==
LOC: JER 00:46 → UNDOADMIN 04:43 → JERBED 04:43 → JASUSAT 08:26 → SUATTDRO 08:26 → J8W 08:26 → JERBED 08:26 → JASUSAT 01-28 16:23
PROVIDERS: ATTEND Internal Medicine
PROC: 0FT44ZZ Resection of Gallbladder, Percutaneous Endoscopic Approach (ICD-10-PCS; principal; 2022-01-25 12:00)
DX: K81.0 Acute cholecystitis (principal)
CPT/HCPCS: 36415; 76705-TC; 80048; 80053; 80076; 81003; 82248; 83036; 83605; 83690; 83735; 84100; 84703; 85025; 85027; 87086; 88304-TC; 93005; 93010; 94760; 99285-25; C9803-CS; U0003; U0005

== ENCOUNTER 2023-06-14 18:25 | Emergency (ER) | payer OTHER ==
[2023-06-14 18:35] VITALS: TEMP 98; BMI 35.3
[2023-06-14] MEDS ORDERED: ACETAMINOPHEN 500 MG TABLET (FP) PO ONE (19:07)
[2023-06-14] MEDS ORDERED: ACETAMINOPHEN 500 MG TABLET (FP) ONE (19:11)
[2023-06-14 19:20] LABS: BASO % 0.3 % (0-2.0); EOS % 1.5 % (0-4.5); HEMATOCRIT 36.6 % (32.4-45.2); HEMOGLOBIN 12.5 GM/dL (10.7-15.3); LYMPH % 33.8 % (8-40); MCH 29.9 pg (25.7-33.7); MCHC 34.1 g/dl (32.0-36.0); MEAN CELL VOLUME 87.7 fl (80-96); NEUT % 59.4 % (42.8-82.8); PLATELET COUNT 360 10^3/uL (134-434); RBC 4.18 M/mm3 (3.60-5.2); RDW 13.1 % (11.6-15.6); WHITE BLOOD COUNT 13.1 K/mm3 (4.0-10.0)
[2023-06-14 19:25] LABS: EPI CELLS 2 /uL (0-25.1); HCG,QUALITATIVE URINE Negative; HYALINE CASTS 0 /uL (0-3.1); URINE APPEARANCE CLEAR; URINE BACTERIA 7 /uL (0-1359); URINE BILIRUBIN NEGATIVE (NEGATIVE); URINE COLOR YELLOW; URINE GLUCOSE (UA) NEGATIVE (NEGATIVE); URINE KETONE NEGATIVE (NEGATIVE); URINE LEUK ESTERASE NEGATIVE (NEGATIVE); URINE NITRITE NEGATIVE (NEGATIVE); URINE PROTEIN NEGATIVE (NEGATIVE); URINE RBC 226 /uL (0-23.9); URINE UROBILINOGEN 0.2 mg/dL (0.2-1.0); URINE WBC 6 /uL (0-25.8)
[2023-06-14 20:33] LABS: CHLORIDE 107 mmol/L (98-107); POTASSIUM 3.7 mmol/L (3.5-5.1); SODIUM 141 mmol/L (136-145)
[2023-06-14 20:38] LABS: ALBUMIN 3.6 g/dl (3.4-5.0); ANION GAP 7 mmol/L (4-13); CO2 26 mmol/L (21-32); GLUCOSE,RANDOM 151 mg/dL (74-106)
[2023-06-14 20:41] LABS: CREATININE 0.7 mg/dL (0.55-1.3); SGOT/AST 11 U/L (15-37); SGPT/ALT 31 U/L (13-61)
[2023-06-14 20:42] LABS: BILIRUBIN,TOTAL 0.2 mg/dL (0.2-1); TOT PROT 7.7 g/dl (6.4-8.2)
[2023-06-14 20:43] LABS: ALK PHOS 92 U/L (45-117)
[2023-06-14 21:41] VITALS: BP 122/73; PULSE 65; RESP 16
== END 2023-06-14 21:45 | disposition home or self-care (01) ==
LOC: JER 18:25
DX: R10.32 Left lower quadrant pain (principal); N93.9 Abnormal uterine and vaginal bleeding, unspecified; R10.2 Pelvic and perineal pain
CPT/HCPCS: 36415; 76830-TC; 80053; 81003; 84702; 84703; 85025; 87086; 99284-25